=== PATIENT | female | born 1930 | race Caucasian/White ===

== ENCOUNTER 2017-09-05 18:52 | Emergency (ER) | payer OTHER ==
[2017-09-05] MEDS ORDERED: NA CHLORIDE 0.9% 1,000 ML ONE (19:30)
[2017-09-05 19:38] LABS: Absolute Lymphocytes (CBC) 1.9 K/uL (0.7-4.9); Absolute Monocytes 0.8 K/uL (0.1-1.3); Absolute Neutrophil 7.3 K/uL (1.8-8.0); Basophils % 0.9 % (0-1.3); Eosinophils % 1.9 % (0-4.4); Hematocrit 38.4 % (36.0-45.0); Lymphocytes % 18.7 % (15.3-44.8); MCH 29.9 pg (27.0-35.0); MCV 88.9 fL (80-100); MPV 10.1 fL (7.6-11.3); Monocytes % 7.8 % (3.3-12.3); RBC Red Blood Cell Count 4.32 M/uL (3.86-4.86)
[2017-09-05 19:42] LABS: Protime INR 0.98
[2017-09-05 19:52] LABS: ALT/SGPT 23 U/L (12-78); AST/SGOT 24 U/L (15-37); Albumin 3.5 g/dL (3.4-5.0); Alkaline Phosphatase 109 U/L (45-117); BUN Blood Urea Nitrogen 26 mg/dL (7-18); Bicarbonate 33 mmol/L (21-32); Bilirubin Direct < 0.1 mg/dL (0-0.2); Bilirubin Total 0.3 mg/dL (0.2-1.0); CKMB Creatine Kinase MB 1.3 ng/mL (0.3-3.6); Creatine Phosphokinase 82 U/L (26-192); Glucose Level 149 mg/dL (74-106); Lipase 169 U/L (73-393); Magnesium 2.3 mg/dL (1.8-2.4); NT PRO-BNP 876 pg/mL (<450); Potassium 3.6 mmol/L (3.5-5.1); Protein, Total 7.6 g/dL (6.4-8.2); Sodium Level 140 mmol/L (136-145)
--- NOTE | 2017-09-05 20:15 | EDPHYS ---
Physician Documentation [facility] Name: Michelle Rincon Age: 86 yrs Sex: Female : 1930 Arrival Date: 09/05/2017 Time: 18:55 Bed 5 Private MD: ED Physician Mert Rankin HPI: 09/05 19:31 This 86 yrs old Female presents to ER via EMS with complaints of Drooling. carlos 19:31 The patient or guardian reports chest pain that is located primarily in the substernal carlos area. Onset: today. The patient presents with decreased responsiveness. Onset: The symptoms/episode began/occurred today. Possible causes: unknown. The pain does not radiate. Associated signs and symptoms: Pertinent positives: confusion. Current symptoms: In the emergency department the patient's symptoms are unchanged from the initial presentation. Historical: - Allergies: 19:17 Morphine; sv 19:17 PENICILLINS; sv 19:17 Sulfa (Sulfonamide Antibiotics); sv - Home Meds: 19:35 Citracal Oral daily [Active]; docusate sodium 100 mg Oral tab 1 tab 2 times per day lp1 [Active]; donepezil 10 mg oral tab twice a day [Active]; hydrochlorothiazide 12.5 mg Oral cap 1 cap once daily [Active]; levothyroxine 100 mcg tab 1 tab once daily [Active]; loratadine 10 mg oral tab 1 tab once daily [Active]; losartan 25 mg oral tab 1 tab once daily [Active]; memantine oral 28 mg oral once daily [Active]; mirtazapine 15 mg Oral tab nightly [Active]; pravastatin 40 mg oral tab 1 tab once daily [Active]; trazodone 50 mg Oral tab 0.5 tab nightly [Active]; tramadol 50 mg Oral tab three times a day for Pain [Active]; - PMHx: 19:17 Alzheimers; Hypertension; Hypothyroidism; sv - Immunization history:: Adult Immunizations unknown. - Social history:: Smoking status: unknown. - Ebola Screening: : Unable to complete screening because patient is disoriented, . - Family history:: not pertinent. ROS: 19:31 Constitutional: Negative for fever, chills, and weight loss, Eyes: Negative for injury, carlos pain, redness, and discharge, ENT: Negative for injury, pain, and discharge, Neck: Negative for injury, pain, and swelling, Respiratory: Negative for shortness of breath, cough, wheezing, and pleuritic chest pain, Abdomen/GI: Negative for abdominal pain, nausea, vomiting, diarrhea, and constipation, Back: Negative for injury and pain, : Negative for injury, bleeding, discharge, and swelling, MS/Extremity: Negative for injury and deformity, Skin: Negative for injury, rash, and discoloration, Psych: Negative for depression, anxiety, suicide ideation, homicidal ideation, and hallucinations, Allergy/Immunology: Negative for hives, rash, and allergies, Endocrine: Negative for neck swelling, polydipsia, polyuria, polyphagia, and marked weight changes, Hematologic/Lymphatic: Negative for swollen nodes, abnormal bleeding, and unusual bruising. 19:31 Cardiovascular: Positive for chest pain. 19:31 Neuro: Positive for altered mental status. Exam: 19:31 Constitutional: This is a well developed, well nourished patient who is awake, alert, carlos and in no acute distress. Head/Face: Normocephalic, atraumatic. Eyes: Pupils equal round and reactive to light, extra-ocular motions intact. Lids and lashes normal. Conjunctiva and sclera are non-icteric and not injected. Cornea within normal limits. Periorbital areas with no swelling, redness, or edema. ENT: Nares patent. No nasal discharge, no septal abnormalities noted. Tympanic membranes are normal and external auditory canals are clear. Oropharynx with no redness, swelling, or masses, exudates, or evidence of obstruction, uvula midline. Mucous membranes moist. Neck: Trachea midline, no thyromegaly or masses palpated, and no cervical lymphadenopathy. Supple, full range of motion without nuchal rigidity, or vertebral point tenderness. No Meningismus. Chest/axilla: Normal chest wall appearance and motion. Nontender with no deformity. No lesions are appreciated. Cardiovascular: Regular rate and rhythm with a normal S1 and S2. No gallops, murmurs, or rubs. Normal PMI, no JVD. No pulse deficits. Respiratory: Lungs have equal breath sounds bilaterally, clear to auscultation and percussion. No rales, rhonchi or wheezes noted. No increased work of breathing, no retractions or nasal flaring. Abdomen/GI: Soft, non-tender, with normal bowel sounds. No distension or tympany. No guarding or rebound. No evidence of tenderness throughout. Back: No spinal tenderness. No costovertebral tenderness. Full range of motion. Female : Normal external genitalia. Skin: Warm, dry with normal turgor. Normal color with no rashes, no lesions, and no evidence of cellulitis. MS/ Extremity: Pulses equal, no cyanosis. Neurovascular intact. Full, normal range of motion. Neuro: Awake and alert, GCS 15, oriented to person, place, time, and situation. Cranial nerves II-XII grossly intact. Motor strength 5/5 in all extremities. Sensory grossly intact. Cerebellar exam normal. Normal gait. Psych: Awake, alert, with orientation to person, place and time. Behavior, mood, and affect are within normal limits. Vital Signs: 18:50 BP 138 / 46; Pulse 78; Resp 16; Pulse Ox 97% on R/A; sv 20:36 BP 126 / 98; Pulse 74; Resp 16 S; Pulse Ox 98% on R/A; bb 21:32 BP 126 / 49; Pulse 73; Resp 18 S; Pulse Ox 97% on R/A; Pain 0/10; bb MDM: 19:10 Patient medically screened. [facility] 19:33 Data reviewed: vital signs, nurses notes, lab test result(s), EKG, radiologic studies, [facility] CT scan, plain films. 09/05 19:24 Order name: Basic Metabolic Panel [facility] 09/05 19:24 Order name: CBC with Diff [facility] 09/05 19:24 Order name: Ckmb [facility] 09/05 19:24 Order name: CPK; Complete Time: 20:05 [facility] 09/05 19:24 Order name: LFT's; Complete Time: 20:05 [facility] 09/05 19:24 Order name: Magnesium; Complete Time: 20:05 [facility] 09/05 19:24 Order name: NT PRO-BNP; Complete Time: 20:05 [facility] 09/05 19:24 Order name: PT-INR; Complete Time: 20:05 [facility] 09/05 19:24 Order name: Ptt, Activated; Complete Time: 20:05 [facility] 09/05 19:24 Order name: Troponin (emerg Dept Use Only); Complete Time: 20:05 [facility] 09/05 19:24 Order name: Lipase; Complete Time: 20:05 [facility] 09/05 19:24 Order name: Urine Culture [facility] 09/05 19:24 Order name: Blood Culture Adult (2) [facility] 09/05 19:24 Order name: Basic Metabolic Panel; Complete Time: 20:05 [facility] 09/05 19:24 Order name: XRAY Chest (1 view) [facility] 09/05 19:24 Order name: EKG; Complete Time: 19:24 [facility] 09/05 19:24 Order name: Cardiac monitoring; Complete Time: 19:29 [facility] 09/05 19:24 Order name: EKG - Nurse/Tech; Complete Time: 19:29 [facility] 09/05 19:24 Order name: IV Saline Lock; Complete Time: 19:29 [facility] 09/05 19:24 Order name: Labs collected and sent; Complete Time: 19:29 [facility] 09/05 19:24 Order name: CT Head Brain wo Cont; Complete Time: 20:18 [facility] 09/05 19:24 Order name: CBC with Automated Diff; Complete Time: 20:05 [facility] 09/05 19:24 Order name: CKMB Creatine Kinase MB; Complete Time: 20:05 [facility] 09/05 19:34 Order name: Urine Culture [facility] 09/05 19:34 Order name: Urine Culture [facility] 09/05 19:38 Order name: TSH [facility] 09/05 20:16 Order name: Urine Dipstick--Ancillary (enter results) 09/05 20:18 Order name: CONS Physician Consult [facility] 09/05 19:24 Order name: O2 Per Protocol; Complete Time: 19:29 [facility] 09/05 19:24 Order name: O2 Sat Monitoring; Complete Time: 19:29 [facility] 09/05 19:24 Order name: Urine Dipstick-Ancillary (obtain specimen); Complete Time: 20:19 [facility] Administered Medications: 19:40 Drug: NS 0.9% 1000 ml Route: IV; Rate: 125 ml/hr; Site: right antecubital; bb 21:34 Follow up: IV Status: Order to discontinue infusion; IV Intake: 160ml bb 20:36 Drug: Aspirin Chewable Tablet 162 mg Route: PO; bb 21:34 Follow up: Response: No adverse reaction bb Point of Care Testing: Blood Glucose: 19:09 Blood Glucose: 138 mg/dL; dh3 Ranges: Critical Glucose Levels:Adult <50 mg/dl or >400 mg/dl <40 mg/dl or >180 mg/dl Disposition: 09/05/17 20:13 Hospitalization ordered by Megan So for Inpatient Admission. Preliminary diagnosis are Chest pain, unspecified, Weakness, Altered mental status, unspecified. - Bed requested for Telemetry/MedSurg (Inpatient). - Status is Inpatient Admission. bb - Condition is Fair. - Problem is new. - Symptoms have improved. UTI on Admission? No Signatures: Dispatcher [employer] EDND Jocy Lewis RN RN Mert Hensley MD MD cha Ballard, Brenda, RN RN Marilee Martell RN RN lp1 Corrections: (The following items were deleted from the chart) 22:01 20:13 Hospitalization Ordered by Megan So MD for Inpatient Admission. Preliminary bb diagnosis is Chest pain, unspecified; Weakness; Altered mental status, unspecified. Bed requested for Telemetry/MedSurg (Inpatient). Status is Inpatient Admission. Condition is Fair. Problem is new. Symptoms have improved. UTI on Admission? No. carlos
--- NOTE | 2017-09-05 20:15 | ER ---
Nurse's Notes [facility] Name: Michelle Rincon Age: 86 yrs Sex: Female : 1930 Arrival Date: 09/05/2017 Time: 18:55 Bed 5 Private MD: Diagnosis: Chest pain, unspecified;Weakness;Altered mental status, unspecified Presentation: 09/05 18:50 Presenting complaint: EMS states: called out from [facility]. Staff reported pt was sv sitting eating dinner and started drooling milk. No other symptoms reported. Stroke scale negative per EMS. BP 124/80 HR 77 98% RA BS-202. Transition of care: patient was not received from another setting of care. Onset of symptoms was September 05, 2017. Care prior to arrival: None. 18:50 Method Of Arrival: EMS: [facility] sv 18:50 Acuity: SHAMIKA 3 sv 19:30 Risk Assessment: Do you want to hurt yourself or someone else? Patient reports no bb desire to harm self or others. Initial Sepsis Screen: Does the patient meet any 2 criteria? No. Patient's initial sepsis screen is negative. Does the patient have a suspected source of infection? No. Patient's initial sepsis screen is negative. Triage Assessment: 19:35 Pain: Denies pain. bb Historical: - Allergies: 19:17 Morphine; sv 19:17 PENICILLINS; sv 19:17 Sulfa (Sulfonamide Antibiotics); sv - Home Meds: 19:35 Citracal Oral daily [Active]; docusate sodium 100 mg Oral tab 1 tab 2 times per day lp1 [Active]; donepezil 10 mg oral tab twice a day [Active]; hydrochlorothiazide 12.5 mg Oral cap 1 cap once daily [Active]; levothyroxine 100 mcg tab 1 tab once daily [Active]; loratadine 10 mg oral tab 1 tab once daily [Active]; losartan 25 mg oral tab 1 tab once daily [Active]; memantine oral 28 mg oral once daily [Active]; mirtazapine 15 mg Oral tab nightly [Active]; pravastatin 40 mg oral tab 1 tab once daily [Active]; trazodone 50 mg Oral tab 0.5 tab nightly [Active]; tramadol 50 mg Oral tab three times a day for Pain [Active]; - PMHx: 19:17 Alzheimers; Hypertension; Hypothyroidism; sv - Immunization history:: Adult Immunizations unknown. - Social history:: Smoking status: unknown. - Ebola Screening: : Unable to complete screening because patient is disoriented, . - Family history:: not pertinent. Screenin:33 The patient has not been NPO before screening. The patient is alert, able to follow bb commands. The patient does not exhibit slurred or garbled speech The patient is not exhibiting difficulty speaking. The patient does not exhibit difficulty understanding words. The patient is able to swallow own secretions with no drooling or need for suction. Patient tolerated one teaspoon of water. No drooling, immediate coughing, gurgling, or clearing of the throat was noted. The patient tolerated 90mL of water. No drooling, immediate coughing, gurgling, or clearing of the throat was noted. The patient passed the bedside swallow screening. Oral medications may be given as ordered. Contact Physician for further diet orders. 20:36 Abuse screen: Denies threats or abuse. Nutritional screening: No deficits noted. bb Tuberculosis screening: No symptoms or risk factors identified. Fall Risk Secondary diagnosis (15 points) IV access (20 points). Ambulatory Aid- None/Bed Rest/Nurse Assist (0 pts). Gait- Impaired (20 pts.). Mental Status- Overestimates/Forgets Limitations (15 pts.). Total Han Fall Scale indicates High Risk Score (45 or more points). Fall prevention measures have been instituted. Side Rails Up X 2 Family Present and informed to notify staff if the need to leave the bedside As available patient and family educated on Fall Prevention Program and Strategies. Assessment: 19:30 General: Appears in no apparent distress. Behavior is calm, cooperative. Neuro: Level bb of Consciousness is awake, alert, obeys commands, Oriented to person, Speech is normal. Cardiovascular: Heart tones S1 S2 present. Respiratory: Respiratory effort is even, unlabored, Respiratory pattern is regular. 19:31 Respiratory: Breath sounds are clear bilaterally. GI: Abdomen is non-distended. Derm: bb Skin is pink, warm \T\ dry. Musculoskeletal: Circulation, motion, and sensation intact. 20:34 Reassessment: pt resting quietly, states she is feeling better, IV site intact, patent bb with fluids infusing, family at bedside, pt and family notified of admission and verbalized understanding of and agrees to plan of care. 21:31 Reassessment: pt is A\T\O x 1, speech normal, resp unlabored, pt family verbalized bb understanding of and agrees to change in plan of care pt [facility] to [facility]. Vital Signs: 18:50 BP 138 / 46; Pulse 78; Resp 16; Pulse Ox 97% on R/A; sv 20:36 BP 126 / 98; Pulse 74; Resp 16 S; Pulse Ox 98% on R/A; bb 21:32 BP 126 / 49; Pulse 73; Resp 18 S; Pulse Ox 97% on R/A; Pain 0/10; bb ED Course: 18:55 Patient arrived in ED. em1 19:00 Arm band placed on right wrist. sv 19:00 Patient has correct armband on for positive identification. Placed in gown. Bed in low sv position. Call light in reach. conveyor monitor on. Pulse ox on. NIBP on. Door closed. Head of bed elevated. 19:09 Inserted saline lock: 20 gauge in right antecubital area, using aseptic technique. dh3 Blood collected. 19:10 Mert Rankin MD is Attending Physician. carlos 19:13 Triage completed. sv 19:18 Report given to Marilee SIMENTAL. sv 19:27 Alcira Whitmore RN is Primary Nurse. bb 19:47 CT completed. Patient moved to CT via wheelchair. Patient moved back from CT. cw1 19:48 CT Head Brain wo Cont In Process Unspecified. EDMS 19:55 X-ray completed. Portable x-ray completed in exam room. Patient tolerated procedure jw2 well. 19:56 XRAY Chest (1 view) In Process Unspecified. EDMS 20:13 Megan So MD is Hospitalizing Provider. carlos 20:15 Second set of blood cultures drawn by ca. ks6 20:20 Urine collected: straight cath specimen, clear, Amount Returned: 100mL. Straight cath ms inserted, using sterile technique, 16 Fr. Specimen obtained. Returned clear yellow urine. Patient tolerated well. 21:32 No provider procedures requiring assistance completed. IV discontinued, intact, bb bleeding controlled, No redness/swelling at site. Pressure dressing applied. Administered Medications: 19:40 Drug: NS 0.9% 1000 ml Route: IV; Rate: 125 ml/hr; Site: right antecubital; bb 21:34 Follow up: IV Status: Order to discontinue infusion; IV Intake: 160ml bb 20:36 Drug: Aspirin Chewable Tablet 162 mg Route: PO; bb 21:34 Follow up: Response: No adverse reaction bb Point of Care Testing: Blood Glucose: 19:09 Blood Glucose: 138 mg/dL; dh3 Ranges: Intake: 21:34 IV: 160ml; Total: 160ml. bb Outcome: 20:13 Decision to Hospitalize by Provider. [facility] 21:33 Discharged to home via wheelchair, with family. bb 21:33 Condition: stable 21:33 Discharge instructions given to patient, family, Instructed on discharge instructions, follow up and referral plans. medication usage, Demonstrated understanding of instructions, follow-up care, medications. 22:01 Patient left the ED. bb Signatures: Dispatcher [employer] Jocy Guzman RN RN sv Anderson, Corey, MD MD cha Ballard, Brenda, RN RN bb Solis, Maria ms Martinez, Eric em1 Funmilayo Resendez cw1 Marilee Simmons RN RN 1 Mariia Saleem 2 Yoselin Mathur 3 Thad Byrd ks6
--- NOTE | 2017-09-05 20:16 | RAD REPORT ---
EXAM DESCRIPTION: CT - Head Brain Wo Cont - 09/05/2017 7:48 pm CLINICAL HISTORY: Alzheimer's disease, transient alteration of awareness COMPARISON: None. TECHNIQUE: Axial 5 mm thick images of the head were obtained without IV contrast. All CT scans are performed using dose optimization technique as appropriate and may include automated exposure control or mA/KV adjustment according to patient size. FINDINGS: No intracranial hemorrhage, mass, edema or shift of mid-line structures. No acute infarcti on changes seen. Prominent atrophy and chronic ischemic changes are present. Ventricles are in propor tion to volume loss. Arterial and physiologic calcifications are present. Mastoid air cells and visualized portions of the paranasal sinuses are clear. No acute bony findings. IMPRESSION: Negative non-contrast CT head examination for acute finding. Prominent atrophy chronic ischemic change.
[2017-09-05 20:29] LABS: Urine Blood NEGATIVE (NEG); Urine Glucose NEGATIVE (NEG); Urine Protein NEGATIVE (NEG); Urine pH 5.5 (5.0-7.0)
--- NOTE | 2017-09-05 21:38 | P.SSS ---
Patient History Date of Service: 09/05/17 Reason for admission: AMS History of Present Illness: Ms Rincon is an 86 years old woman with history of advance dementia, hypothyroidism, resident of a local custodial, who was found drooling from her mouth today. [facility] staff then called EMS and the patient was transferred to ED for evaluation. There are no history of fever, chills, nausea , vomiting, diarrhea, cough or SOB. In ED evaluation she was alert and awake without any obvious neurological deficit other than confusion which is her baseline according to her son. CT head shows no acute abnormalities. WBC within normal limits, UA normal. Allergies morphine Allergy (Severe, Verified 12/07/16 11:03) Hives/Rash Penicillins Allergy (Severe, Verified 12/07/16 11:03) Hives/Rash Sulfa (Sulfonamide Antibiotics) Allergy (Verified 12/06/16 10:54) Hives/Rash Home medications list reviewed: Yes Home Medications: Ca Citrate/Mgox/Vit D3/B6/Min [Citracal Plus Tablet] 1 each PO DAILY 12/06/16 Dextromethorphan Polistirex [Delsym] 5 ml PO Q12HP PRN 12/06/16 Donepezil [Aricept*] 5 mg PO BID 12/06/16 Levothyroxine [Synthroid*] 75 mcg PO [id number] 12/06/16 Loratadine [Claritin*] 10 mg PO DAILY 12/06/16 Losartan Potassium [Cozaar] 25 mg PO DAILY 12/06/16 Memantine HCl [Namenda Xr] 28 mg PO DAILY 12/06/16 Nitrofuran Macro [Macrobid*] 100 mg PO DAILY 12/06/16 Pravastatin Sodium [Pravachol] 40 mg PO DAILY 12/06/16 Sodium Chloride [[place] Saline] 50 ml NS QIDP PRN 12/06/16 hydroCHLOROthiazide [Hydrochlorothiazide*] 12.5 mg PO DAILY 12/06/16 Docusate [Colace Cap*] 100 mg PO BID #30 cap 12/11/16 Enoxaparin Sodium [Lovenox 30 MG INJ*] 30 mg SQ Q12H #1 syr 12/11/16 - Past Medical/Surgical History Diabetic: No -: HTN -: Alzheimers -: Dementia -: Hypothyrodism - Family History Father -: Hypertension - Social History Alcohol use: No CD- Drugs: No Caffeine use: Yes Place of Residence: Custodial Review of Systems 10-point ROS is otherwise unremarkable Physical Examination - Physical Exam General: Alert, In no apparent distress, Confused HEENT: Atraumatic, PERRLA, Mucous membr. moist/pink, EOMI, Sclerae nonicteric Neck: Supple, 2+ carotid pulse no bruit, No LAD, Without JVD or thyroid abnormality Respiratory: Clear to auscultation bilaterally, Normal air movement Cardiovascular: Normal S1 S2, No gallops Gastrointestinal: Normal bowel sounds, No tenderness Musculoskeletal: No tenderness Integumentary: No rashes Neurological: Normal speech, Normal strength at 5/5 x4 extr, Normal tone, Normal affect, Dementia Lymphatics: No axilla or inguinal lymphadenopathy - Studies Laboratory Data (last 24 hrs) 09/05/17 19:05: PT 11.6, INR 0.98, APTT 30.7 09/05/17 19:05: WBC 10.4, Hgb 12.9, Hct 38.4, Plt Count 321 09/05/17 19:05: Sodium 140, Potassium 3.6, BUN 26 H, Creatinine 1.10, Glucose 149 H, Magnesium 2.3, Total Bilirubin 0.3, AST 24, ALT 23, Alkaline Phosphatase 109, Lipase 169 - Diagnosis (Problem(s)) (1) Altered mental status Current Visit: Yes Status: Acute Qualifiers: Altered mental status type: unspecified Qualified Code(s): R41.82 - Altered mental status, unspecified (2) Dementia Onset Date: 12/08/16 Current Visit: No Status: Acute Qualifiers: Dementia type: Alzheimer's disease Alzheimer's disease onset: unspecified onset Dementia behavioral disturbance: without behavioral disturbance Qualified Code(s): G30.9 - Alzheimer's disease, unspecified; F02.80 - Dementia in other diseases classified elsewhere without behavioral disturbance; F02.80 - Dementia in other diseases classified elsewhere without behavioral disturbance; F02.80 - Dementia in other diseases classified elsewhere without behavioral disturbance (3) Hypertension Current Visit: No Status: Chronic Qualifiers: Hypertension type: essential hypertension Qualified Code(s): I10 - Essential (primary) hypertension (4) Hypothyroidism Onset Date: 12/08/16 Current Visit: No Status: Chronic Qualifiers: Hypothyroidism type: unspecified Qualified Code(s): E03.9 - Hypothyroidism , unspecified Treatment Summary: The patient is already at her baseline, without any new neurologic deficit. CT head shows no acute abnormalities. She is not complaining of any specific pain. Vital signs are stable, at this point she will be discharge back to the custodial and resume her home medication without modification. - Disposition Disposition: TRANSFER TO INTERMEDIATE Condition: GOOD Diet: Regular Activity: Fall precautions
[2017-09-05 22:22] VITALS: BP 126/49; O2SAT 97
--- NOTE | 2017-09-05 22:56 | EKG ---
Test Date: 2017-09-05 Test Time: 19:24:06 Gummed Tape Press Operator: SALUD MEASUREMENT RESULTS: Intervals: Rate: 76 NH: 166 QRSD: 104 QT: 432 QTc: 486 [place]: P: 68 NH: 166 QRS: -18 T: 126 INTERPRETIVE STATEMENTS: Normal sinus rhythm Anteroseptal infarct, age undetermined ST & T wave abnormality, consider lateral ischemia Abnormal ECG Compared to ECG 12/06/2016 07:13:37 Sinus bradycardia no longer present Myocardial infarct finding still present Electronically Signed On 09-05-17 22:56:21 CDT by Clyde Badillo
[2017-09-06] MEDS ORDERED: ASPIRIN 81 MG CHEWABLE TABLET PO SCH (09:00)
== END 2017-09-05 21:52 | DRG 948 ==
LOC: ER 18:52 → ERHOLD 20:15 → UNDOADMIN 20:15 → UNDODISIN 21:52 → ER 21:52
PROVIDERS: ADMIT Internal Medicine
DX: R41.82 Altered mental status, unspecified (principal); G30.1 Alzheimer's disease with late onset; F02.80 Dementia in other diseases classified elsewhere, unspecified severity, without behavioral disturbance, psychotic disturbance, mood disturbance, and anxiety; I10 Essential (primary) hypertension; E03.9 Hypothyroidism, unspecified; Z88.5 Allergy status to narcotic agent; Z88.0 Allergy status to penicillin; Z88.2 Allergy status to sulfonamides
CPT/HCPCS: 36415; 51702; 70450; 71045; 80048; 80076; 81003; 82550; 82553; 82962; 83690; 83735; 83880; 84443; 84484; 85025; 85610; 85730; 87040; 87086; 87088; 93005; 96360; 96361; 99285; J7030

== ENCOUNTER 2018-07-04 09:47 | Emergency (ER) | payer OTHER ==
[2018-07-04] MEDS ORDERED: AMIODARONE HCL 150 MG/3 ML INJ IV ONE (09:48)
[2018-07-04] MEDS ORDERED: EPINEPHrine 1 MG/10 ML SYR IV ONE (09:48)
[2018-07-04] MEDS ORDERED: NA CHLORIDE 0.9% 1,000 ML IV ONE (09:48)
[2018-07-04] MEDS ORDERED: MAGNESIUM SULF 1GM/2ML VIAL IV ONE (09:48)
--- NOTE | 2018-07-04 10:09 | EDPHYS ---
Physician Documentation [facility] Name: Michelle Rincon Age: 87 yrs Sex: Female : 1930 Arrival Date: 07/04/2018 Time: 10:00 Bed 3 Private MD: ED Physician Isiah Gatica HPI: 07/04 10:08 This 87 yrs old Female presents to ER via Unassigned with complaints of CPR. rn 10:08 Preceding the arrest, the patient was found down by senior care staff. The arrest rn occurred at senior care. Pre-hospital course: The arrest was not witnessed by others. Bystanders at the scene did not perform CPR. EMS care prior to arrival: initiation of ACLS, ACLS details: Initial rhythm was PEA. The presenting rhythm is PEA. Airway: oral intubation, Medications given by EMS prior to arrival - Epinephrine IV x 6 doses, Response to therapy: continued arrest. It is unknown whether or not the patient has had similar symptoms in the past. Found down by senior care staff, unknown exact down time, no bystander CPR, nursing staff stated they believed she had a pulse, EMS confirmed fo pulse upon arrival, PEA, brief and transient ROSC but continued arrest, intubated, 6 epi and 1 bicarb. No response. . Historical: - Allergies: 10:54 Morphine; bp 10:54 PENICILLINS; bp 10:54 Sulfa (Sulfonamide Antibiotics); bp - PMHx: 10:54 Alzheimers; Hypertension; Hypothyroidism; bp - Unable to obtain history due to: unresponsive. ROS: 10:08 Unable to obtain ROS due to comatose state. rn Exam: 10:08 Constitutional: Well developed, intubated, unresponsive, GCS 3 Head/Face: rn Normocephalic, atraumatic. Eyes: Pupils 5mm, non-reactive Cardiovascular: No spont pulses or heart sounds Respiratory: Coarse bilateral breath sounds with diminished on right but present Abdomen/GI: + distended abdomen, no masses MS/ Extremity: + cyanotic and mottled extremities Neuro: GCS 3, intubated Vital Signs: 09:45 Weight 90.72 kg; bp 09:45 SEE CPR SHEET bp Procedures: 10:08 CPR: See CPR flow sheet. Initial patient assessment: unresponsive, The presenting rn transitional care rhythm is PEA. the patient was intubated prior to arrival, Compressions: began prior to arrival. Defibrillation: 200 joules X 3. despite ED evaluation and treatment, the patient . CPR was stopped at 10:05. MDM: 10:05 Patient medically screened. rn 10:06 ED course: Pt with recurrent coarse vfib and vtach, no response to numerous rn defibrillation/epi/bicarb/amiodarone. Pt cool and mottled, CPR and ACLS performed total for about 1 hour, and EMS stated when arrived no CPR administered despite not having a pulse by senior care staff. . 10:08 Differential diagnosis: arrythmia, cardiac arrest, respiratory arrest. Data reviewed: rn vital signs, nurses notes. 10:13 ED course: Ultrasound used to verify cardiac arrest, no carotid or femoral arterial rn flow, no cardiac activity ever present during code. . 11:20 ED course: Pt's family arrived, states has been in bad health lately, not unexpected rn , she had advance directives and plan to use [facility].. Administered Medications: No medications were administered Disposition: 10:06 . rn 10:08 Critical Care:. rn Disposition: Patient pronounced on 07/04/18 10:05 by Isiah Gatica. Impression: Cardiac arrest. - Released to Home. Critical care time excluding procedures: 10:08 Critical care time: Bedside Care: 30 minutes. Total time: 30 minutes rn Signatures: Isiah Gatica MD MD rn Peltier, Brian, RN RN bp Corrections: (The following items were deleted from the chart) 10:27 10:08 CPR: See CPR flow sheet. Initial patient assessment: unresponsive, The presenting rn transitional care rhythm is PEA. the patient was intubated prior to arrival, Compressions: began prior to arrival. Defibrillation: 200 joules X 4. despite ED evaluation and treatment, the patient . CPR was stopped at 10:05. rn 12:23 10:08 07/04/2018 10:08 Patient pronounced on 07/04/2018 at 10:05 by Isiah Gatica. bp Impression: Cardiac arrest. Released to Home. rn
--- NOTE | 2018-07-04 12:24 | ER ---
Nurse's Notes [facility] Name: Michelle Rincon Age: 87 yrs Sex: Female : 1930 Arrival Date: 07/04/2018 Time: 10:00 Bed 3 Private MD: Diagnosis: Cardiac arrest Presentation: 07/04 09:45 Presenting complaint: EMS states: FOUND UNRESPONSIVE IN [place] AT 0905 BY EMS. bp ORIGINAL CALL OUT BY [facility] STAFF AT 0850. Care prior to arrival: Oral intubation, CPR via thumper performed by EMS and is still in progress. Compressions began prior to arrival. 09:45 Method Of Arrival: EMS: [facility] bp 09:45 Acuity: SHAMIKA 1 bp Historical: - Allergies: 10:54 Morphine; bp 10:54 PENICILLINS; bp 10:54 Sulfa (Sulfonamide Antibiotics); bp - PMHx: 10:54 Alzheimers; Hypertension; Hypothyroidism; bp - Unable to obtain history due to: unresponsive. Screenin:45 Abuse screen: Denies threats or abuse. Denies injuries from another. Nutritional bp screening: No deficits noted. Tuberculosis screening: No symptoms or risk factors identified. Assessment: 09:45 CPR assessment: unresponsive, pupils fixed \T\ dilated, no respiratory effort, intubated, bp cyanotic, dependent lividity noted, pulses present w/ compressions. Cardiac rhythm is asystole. General: Appears distressed, obese. Neuro: Level of Consciousness is unresponsive. EENT: No deficits noted. Cardiovascular: Pulses are absent in right femoral artery, left femoral artery, left carotid pulse and right carotid pulse. Cardiovascular: Respiratory: Airway via oral intubation Respiratory effort is APNEIC Respiratory pattern is apnea. GI: No signs and/or symptoms were reported involving the gastrointestinal system. : No signs and/or symptoms were reported regarding the genitourinary system. Derm: Skin is pale. Musculoskeletal: Range of motion: intact in all extremities. 10:05 Reassessment: TIME OF . bp 10:30 Reassessment: PD AT B/S. ATTEMPTED TO CALL [facility] REFERRAL LINE, NO ANSWER. bp 11:05 Reassessment: [facility] STATES PT NOT A CANDIDATE, CASE . bp 11:13 Reassessment: PER [place] PD, SAE NOT EN ROUTE, PCP DR ADAN [phone] TO SIGN bp CERTIFICATE. 11:26 Reassessment: SAE WITH [facility] EN ROUTE. bp 12:11 Reassessment: [facility] AT B/S. bp Vital Signs: 09:45 Weight 90.72 kg; bp 09:45 SEE CPR SHEET bp ED Course: 09:45 Patient has correct armband on for positive identification. Placed in gown. Bed in low bp position. Call light in reach. Side rails up X2. 10:00 Patient arrived in ED. hj 10:05 Isiah Gatica MD is Attending Physician. rn 10:06 Peter Jewell, RN is Primary Nurse. bp 10:07 Isiah Gatica MD is Pronouncing Provider. rn 10:15 Police dispatch called/ Gerald JACKSON dispatch called to notify the [employer] to please eb call ED. 10:40 Triage completed. 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 Administered Medications: No medications were administered Outcome: 09:45 Outcome Patient bp 09:45 Patient : Time of 10:05 Pronounced by Isiah Fenton MD notified 09:45 Condition: 12:23 Patient left the ED. bp Signatures: Isiah Gatica MD MD rn Joaquin, Henry RN Peter Lo, Wendi Claire RN
== END 2018-07-04 12:23 | disposition expired ==
LOC: ER 09:47
DX: I46.9 Cardiac arrest, cause unspecified (principal); I10 Essential (primary) hypertension; G30.9 Alzheimer's disease, unspecified; F02.80 Dementia in other diseases classified elsewhere, unspecified severity, without behavioral disturbance, psychotic disturbance, mood disturbance, and anxiety; Z88.0 Allergy status to penicillin; Z88.2 Allergy status to sulfonamides; Z88.5 Allergy status to narcotic agent
CPT/HCPCS: J0282; J3475; J0171; J7030